=== PATIENT | female | born 1980 | race African-American/Black ===

== ENCOUNTER 2021-05-05 14:31 | Emergency (ER) | payer OTHER ==
[~2021-05-05] VITALS: Ht 165.1 cm; Wt 98.0 kg
[2021-05-05] MEDS ORDERED: ONDANSETRON HCL 4MG/2ML INJ IV STA (15:38)
[2021-05-05] MEDS ORDERED: LACTATED RINGERS 1,000 ML IV STA (15:38)
[2021-05-05 16:23] LABS: BASOPHILS % 0.2 % (0.0-2.0); CHLORIDE 101 mEq/L (98-107); EOSINOPHILS % 0.1 % (0.0-5.0); HEMATOCRIT. 40.9 % (36.0-48.0); HEMOGLOBIN. 13.4 g/dL (12.0-16.0); LYMPHOCYTES % 15.4 % (20.0-50.0); MEAN CORPUSCULAR HEMOGLOBIN 26.6 pg (28.0-32.0); MEAN CORPUSCULAR VOLUME 81.4 fL (81.0-99.0); MEAN PLATELET VOLUME 8.4 fl (7.4-10.4); MONOCYTES % 8.6 % (2.0-8.0); NEUTROPHILS % 75.7 % (40.0-76.0); PLATELET 239 x1000/uL (130-400); RED BLOOD CELL COUNT 5.03 mill/uL (4.2-5.4); RED CELL DISTRIBUTION WIDTH 16.2 % (11.6-14.6)
[2021-05-05 16:26] LABS: INR 1.1; PROTHROMBIN TIME 11.4 sec (9.6-11.0)
[2021-05-05] MEDS ORDERED: METOCLOPRAMIDE HCL 10MG/2ML VIAL IV ONE (19:30)
[2021-05-05] MEDS ORDERED: ONDA8TAB59 PO (19:30)
[2021-05-05 19:45] VITALS: BP 122/68
== END 2021-05-05 20:37 | disposition home or self-care (01) ==
LOC: ER 14:31
DX: K52.9 Noninfective gastroenteritis and colitis, unspecified (principal); R11.2 Nausea with vomiting, unspecified; I11.0 Hypertensive heart disease with heart failure; I50.9 Heart failure, unspecified
CPT/HCPCS: 36415; 80053; 83605; 83690; 85025; 85610; 93005; 96361; 96374; 96375; 99284; J2405; J2765; J7120